=== PATIENT | male | born 1970 | race Caucasian/White ===

== ENCOUNTER 2020-11-21 13:10 | Outpatient (CLI) | payer BC, SELFPAY ==
--- NOTE | 2020-11-21 13:30 | US_ITS ---
WS: [id number] ULTRASOUND THYROID TECHNIQUE: Ultrasound of the thyroid. CLINICAL INFORMATION: R07.0 - Pain in throat COMPARISON: None. FINDINGS: Thyroid: Right and left thyroid lobes are normal in size and echotexture. No thyroid nodules are pres ent. A few incidental parotid lymph nodes. Right thyroid lobe: 4.3 cm x 1.2 cm x 1.3 cm Left thyroid lobe: 3.6 cm x 1.0 cm x 1.3 cm. Isthmus: 3.1 mm. Cervical lymphadenopathy: Incidental cervical lymph nodes. US/US soft tissue head neck [id number] IMPRESSION: Normal thyroid ultrasound examination.
== END 2020-11-21 13:11 | disposition home or self-care (01) ==
LOC: US 13:10
PROVIDERS: PCP Physician Assistant Medical; Visit Provider Surgery
DX: R07.0 Pain in throat (principal)
CPT/HCPCS: 76536

== ENCOUNTER → 2021-02-21 15:46 | Outpatient (BNVA) | payer BC, SELFPAY | PROVIDERS: PCP Physician Assistant Medical; Visit Provider Surgery | DX: Z20.822 Contact with and (suspected) exposure to COVID-19 (principal) | CPT/HCPCS: 87635 ==

== ENCOUNTER 2021-02-27 08:27 | Day surgery (SDC) | payer BC, SELFPAY ==
[2021-02-25 14:46] VITALS: BMI 28.3
--- NOTE | 2021-02-27 08:49 | ANES.PREANE2 ---
Pre-Anesthetic Assessment Pre-Anesthetic Assessment: Height/Weight: Height 1.83 m Weight 94.801 kg Preop Diagnosis: diagnostic Proposed Procedure: Operation Date: 02/27/21 10:15 Proposed Procedures p EGD/colon 44210 [id number] R09.89 Z12.11(Not Applicable) - Roel Diamond MD s Colonoscopy(Not Applicable) - Roel Diamond MD Was Beta Tanna taken within 24 hours: N/A Was Clonidine taken within 24 hours: N/A Social: Social History: No alcohol and No tobacco Exam: Pre-Anes Outpt Exam: alert, oriented x 3, clear to auscultation bilaterally and regular rate & rhythm Airway: Submandibular: WNL Cervical ROM: WNL MP: 2 Dentition: Full History/ROS: No significant history except as noted GI: GI: GERD Musc/skel: Musc/skel: OA/DJD Anesthetic Plan: ASA status: 2 Anesthesia: MAC Risk of > 500 ml blood loss (7ml/kg in children): No PFSH Anesthesia PFSH: Medical History (Updated 01/27/21 @ 17:54 by Roel Diamond MD) Arthritis Bilateral inguinal hernia Surgical History Hx of foot surgery Social History Smoking and tobacco status: former smoker Data Anesthesia Cardiac Studies: No Data to Display
[2021-02-27] MEDS: sodium chloride 0.9% 1,000 ML 30 ML IV (10:00)
[2021-02-27 10:06] VITALS: BP 139/84; PULSE 50; RESP 18; TEMP 36.4; O2SAT 98
--- NOTE | 2021-02-27 10:31 | P.HP_ITS ---
Same Day Surgery H&P Indication for Procedure/HPI DATE OF PROCEDURE: February 27, 2021 CHIEF COMPLAINT/INDICATIONFOR SURGICAL PROCEDURE: EGD/colon PREOP DIAGNOSIS: diagnostic PLANNED PROCEDRUE: Operation Date: 02/27/21 10:15 Proposed Procedures p EGD/colon 89998 [id number] R09.89 Z12.11(Not Applicable) - Roel Diamond MD s Colonoscopy(Not Applicable) - Roel Diamond MD Medications/Allergies* Home Medications Medication Instructions Recorded Confirmed Type omeprazole 40 mg capsule,delayed 40 mg PO DAILY 09/12/20 02/27/21 History release Allergies/Adverse Reactions Allergy/AdvReac Type Severity Reaction Status Date / Time Penicillins Allergy Unknown Verified 02/27/21 09:46 Pertinent History/Comorbid Conditions* Medical History (Updated 01/27/21 @ 17:54 by Roel Diamond MD) Arthritis Bilateral inguinal hernia Surgical History (Updated 09/12/20 @ 12:01 by NAVYA Sotomayor) Hx of foot surgery Social History Smoking and tobacco status: former smoker Pertinent Exam Findings alert, oriented x 3 and regular rate & rhythm Recommendations Surgery/Procedure today Coding Level of Care Code Acute Burlap Bag Sewer for Chg Karla
[2021-02-27 11:05] VITALS: BP 105/69; PULSE 82; RESP 16; TEMP 36.1; O2SAT 96
[2021-02-27 11:16] VITALS: BP 130/94; PULSE 60; RESP 16; O2SAT 96
--- NOTE | 2021-02-27 13:40 | ANE.PACU2 ---
Inpatient post-anesthesia follow up: Airway intact: Yes Vital signs: Temperature 97.0 F Pulse Rate 60 Respiratory Rate 16 Blood Pressure 130/94 Pulse Oximetry 96 Oxygen Delivery Me thod Room Air Oxygen Flow Rate 3 Fraction of Inspir ed Oxygen Hydration adequate: Yes Nausea and vomiting: No Pain level: 1 Mental status: Baseline
== END 2021-02-27 11:43 | disposition home or self-care (01) ==
PROVIDERS: PCP Physician Assistant Medical; Visit Provider Surgery
PROC: 0DJ08ZZ Inspection of Upper Intestinal Tract, Via Natural or Artificial Opening Endoscopic (ICD-10-PCS; CPT 43235; principal; 2021-02-27 10:15)
PROC: 0DJD8ZZ Inspection of Lower Intestinal Tract, Via Natural or Artificial Opening Endoscopic (ICD-10-PCS; CPT 45378; 2021-02-27 10:15)
DX: Z12.11 Encounter for screening for malignant neoplasm of colon (principal); M19.90 Unspecified osteoarthritis, unspecified site; K64.8 Other hemorrhoids; K21.9 Gastro-esophageal reflux disease without esophagitis; Z87.891 Personal history of nicotine dependence
CPT/HCPCS: 43235; 45378; 96360; J2704; J7030

== ENCOUNTER → 2023-01-26 19:04 | Outpatient (BNVA) | payer OTHER, SELFPAY | PROVIDERS: Visit Provider Emergency Medicine | DX: N39.0 Urinary tract infection, site not specified (principal); N10 Acute pyelonephritis | CPT/HCPCS: 81000; 87086 ==

== ENCOUNTER 2023-09-30 11:14 | Emergency (ER) | payer OTHER, SELFPAY ==
[2023-09-30 11:30] VITALS: BP 115/77; PULSE 71; RESP 17; TEMP 36.6; O2SAT 96; BMI 25.7
[2023-09-30 12:54] VITALS: BP 127/87; PULSE 82; RESP 21; O2SAT 95
[2023-09-30] MEDS: dexamethasone 10 mg/mL INJ IV (14:42)
[2023-09-30] MEDS: orphenadrine 30 mg/mL Inj 2 mL 60 MG IVP (14:42)
--- NOTE | 2023-09-30 14:42 | ED_ITS ---
HPI - Back Pain/Injury General: Chief Complaint: Back Pain/Injury Stated Complaint: lower back pains Time Seen by Provider: 09/30/23 14:00 Source: patient Mode of arrival: ambulatory History of Present Illness: 53-year-old male presents emergency room with complaint of low back pain. Began 4 days ago after he had done some snow shoveling. He began to have low back spasming and shooting pains a difficult time standing fully erect. He did not have any radiation of pain into his legs. He has not had any difficulty with bowel or bladder he tried some [id number] anti-inflammatories Tylenol and previously prescribed muscle relaxers with no significant relief. No previous surgeries. MD elicited complaint: back pain Pertinent past history: prior back pain Onset (ago): day(s) (4) Timing: constant Quality: sharp and spasming Location: lumbar spine Exacerbating factors: movement, sitting upright and walking Relieving factors: supine Context: while lifting and turning/twisting Associated symptoms: Reports difficulty walking and myalgias; Deny abdominal pain, arthralgias, chills, change in bowel habits, dysuria, fatigue, fecal incontinence, fever(s), hematuria, nausea, numbness, syncope, tingling/numbness/burning, urinary frequency, urinary urgency, vomiting or weakness Review of Systems Const: Denies: fever(s), chills or fatigue Card: Denies: chest pain or syncope Resp: Denies: dyspnea GI: Denies: abdominal pain, nausea, vomiting, fecal incontinence or change in bowel habits : Denies: dysuria, urinary frequency, urinary urgency or hematuria Musc: Denies: neck pain or back pain Skin/Breast: Denies: rash Neuro: Reports: difficulty walking PFSH ED PFSH: Medical History Bilateral inguinal hernia Arthritis Surgical History H/O esophagogastroduodenoscopy (02/27/21) Status post colonoscopy (02/27/21) Repeat in 10 years Hx of foot surgery Social History Smoking and tobacco/nicotine status: former use of tobacco/nicotine Physical Exam Const: GENERAL APPEARANCE: cooperative and comfortable ORIENTATION/CONSCIOUSNESS: Yes awake, Yes oriented to person, Yes oriented to place and Yes oriented to time HENMT: COMMON NORMALS: normocephalic, atraumatic and hearing grossly normal bilaterally HEAD & SCALP: normocephalic and atraumatic Resp: COMMON NORMALS: normal respiratory effort, No retractions, No use of accessory muscles and clear to auscultation bilaterally AUSCULTATION: clear to auscultation bilaterally Cardio: COMMON NORMALS: regular rate, regular rhythm and No murmurs present (Cardio) RATE: regular rate RHYTHM: regular rhythm Extremity: COMMON NORMALS: normal to inspection, capillary refill normal, no clubbing, cyanosis or edema, no calf tenderness and no pedal edema Neuro: SENSORIUM/ORIENTATION: Yes oriented to person, Yes oriented to place and Yes oriented to time Skin: COMMON NORMALS: no rashes or lesions noted GENERAL SKIN EXAM: no rashes or lesions noted Course Vital Signs: Vital signs: Vital Signs Temperature 97.8 F 09/30/23 11:30 Pulse Rate 61 09/30/23 16:06 Respiratory Rate 18 09/30/23 15:34 Blood Pressure 120/69 09/30/23 16:06 Pulse Oximetry 97 09/30/23 16:06 Oxygen Delivery Me thod Room Air 09/30/23 12:54 MDM - Back Pain/Injury Medical Decision Making Pain improved with medications given discharge home steroid taper hydrocodone diclofenac tizanidine. If not improving follow-up with primary care. No fevers no tachycardia. Differential Diagnosis Likely strain of lumbar region Medical Records I reviewed the patient's medical records. Labs I reviewed the patient's lab results. No radiology studies performed this visit Discharge Plan Discharge Patient Disposition: Home Clinical Impression: Strain of lumbar region Condition: Stable Prescriptions: New tizanidine 4 mg tablet 4 mg PO Q6H PRN (Reason: muscle spasticity) Qty: 20 0RF Rx Instructions: do not exceed 3 doses per 24 hrs hydrocodone-acetaminophen 5-325 mg tablet 1 tab PO Q6H PRN (Reason: pain) Qty: 10 0RF prednisone 20 mg tablet 20 mg PO TID Qty: 15 0RF Rx Instructions: 1 p.o. 3 times daily x3 days, 1 p.o. twice daily x2 days, 1 p.o. daily x2 days diclofenac sodium 75 mg tablet,delayed release (DR/EC) 75 mg PO Q12H PRN (Reason: pain) Qty: 20 0RF No Action omeprazole 40 mg capsule,delayed release(DR/EC) 40 mg PO DAILY fluticasone propionate 50 mcg/actuation spray,suspension 2 spray intranasal DAILY PRN (Reason: allergy symptoms) lisinopril 20 mg tablet 10 mg PO DAILY sulfamethoxazole-trimethoprim [Bactrim DS] 800-160 mg tablet 1 tab PO BID 7 Days Qty: 14 0RF Discharge Orders: Discharge ED (Routine); Ordered 09/30/23 Ordered By: Jett Thomas Discharge Diet: Usual diet Discharge Activity: Increase activity as tolerated Patient Instructions: Back Pain (ED), Opioid Safety, Pain Management Activity Restrictions/Additional Instructions: Thank you for choosing [facility] for your healthcare needs today. Please realize this is an emergency room and that we are providing you with a medical screening exam and this may not be complete and all inclusive of all the testing and or work up that you may need to determine your ailment or severity of your illness. It is very important that you follow up as instructed or that you return to the Emergency Department should you have concerns or if your condition changes or worsens in any way. Coding Level of Care Code ED Manager Training And Development for Chandana Acosta
[2023-09-30 14:43] VITALS: RESP 19; O2SAT 96
[2023-09-30] MEDS: morphine 4 mg/mL SDV 1 mL IVP ×2 (14:43→15:34)
[2023-09-30] MEDS: ketorolac 30 mg/mL INJ IVP (14:43)
[2023-09-30 15:34] VITALS: RESP 18; O2SAT 96
[2023-09-30 16:06] VITALS: BP 120/69; PULSE 61; O2SAT 97
== END 2023-09-30 16:13 | disposition home or self-care (01) ==
PROVIDERS: Emergency Provider Family Medicine
DX: S33.5XXA Sprain of ligaments of lumbar spine, initial encounter (principal); Y93.H1 Activity, digging, shoveling and raking
CPT/HCPCS: 96374; 96375; 96376; 99285; J1100; J1885; J2270; J2360